=== PATIENT | female | born 2000 | race Caucasian/White ===

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

== ENCOUNTER 2020-02-08 11:38 | Emergency (ER) | payer SELFPAY ==
[~2020-02-08] VITALS: Ht 160 cm; Wt 50.0 kg
[2020-02-08 12:01] VITALS: Ht 160 cm; Wt 50.0 kg
[2020-02-08 12:35] LABS: HCG URINE NEGATIVE (NEGATIVE)
[2020-02-08 12:58] LABS: BILIRUBIN NEGATIVE (NEGATIVE); GLUCOSE NEGATIVE (NEGATIVE); KETONE NEGATIVE (NEGATIVE); NITRITE NEGATIVE (NEGATIVE); UROBILINOGEN NORMAL (NORMAL)
[2020-02-08 12:59] LABS: BACTERIA MODERATE /hpf (NEGATIVE); EPITHELIAL CELLS 0-5 /hpf (0-5); WHITE CELLS - URINE OCC /hpf (NEGATIVE)
[2020-02-08 13:29] VITALS: BP 129/84
== END 2020-02-08 13:35 | disposition home or self-care (01) ==
LOC: D.ER 11:38
PROVIDERS: Family Medicine
DX: N93.9 Abnormal uterine and vaginal bleeding, unspecified (principal); J45.909 Unspecified asthma, uncomplicated; Z72.0 Tobacco use